=== PATIENT | female | born 1945 | race Caucasian/White ===

== ENCOUNTER 2020-10-26 20:50 | Observation (INO) | payer OTHER ==
[~2020-10-26] VITALS: Ht 170.2 cm; Wt 87.6 kg
[2020-10-26 20:58] VITALS: BP 108/62
[2020-10-26 21:20] LABS: ABSOLUTE EOSINOPHILS 0.5 thou/uL (0.0-0.7); ABSOLUTE LYMPHOCYTES 2.6 thou/uL (0.8-5.3); ABSOLUTE MONOCYTES 1.4 thou/uL (0.0-1.2); ABSOLUTE NEUTROPHILS 6.4 thou/uL (1.6-8.1); BASOPHILS 0.4 %; EOSINOPHILS 4.7 %; HEMATOCRIT 32.2 % (37.0-47.0); LYMPHOCYTES 23.8 %; MCH 31.1 pg (26.0-34.0); MCHC 34.1 g/dL (28.0-37.0); MCV 91.1 fL (80.0-100.0); MONOCYTES 12.7 %; MPV 8.6 fl. (7.2-11.1); NUCLEATED RBCS 0 /100WBC; PLATELET COUNT* 244 thou/uL (150-400); POLYS 58.4 %; RBC 3.54 mil/uL (4.20-5.00); RDW-CV 15.2 % (10.5-14.5); WBC 10.9 thou/uL (4.0-11.0)
[2020-10-26 21:31] LABS: CALCIUM 8.6 mg/dL (8.5-10.1); CREATININE 1.7 mg/dL (0.6-1.3); POTASSIUM 4.6 mmol/L (3.5-5.1)
[2020-10-26 21:42] LABS: ALBUMIN 2.6 g/dL (3.4-5.0); MAGNESIUM 1.7 mg/dL (1.8-2.4); TOTAL BILIRUBIN 0.4 mg/dL (<0.1-1.0); TOTAL PROTEIN 7.3 g/dL (6.4-8.2)
[2020-10-26 21:54] LABS: URINE BILIRUBIN NEGATIVE (Negative); URINE BLOOD NEGATIVE (Negative); URINE CLARITY CLEAR; URINE COLOR YELLOW; URINE GLUCOSE-RANDOM NEGATIVE (Negative); URINE KETONES NEGATIVE (Negative); URINE LEUKOCYTES-REFLEX NEGATIVE (Negative); URINE NITRITE-REFLEX NEGATIVE (Negative); URINE PROTEIN TRACE (Negative); URINE SPECIFIC GRAVITY 1.015 (1.005-1.030)
[2020-10-26] MEDS ORDERED: OXYBUTYNIN 5 MG5 M2 PO (23:15)
[2020-10-26] MEDS ORDERED: LIPITOR 20 MG T20 M1 PO (23:16)
[2020-10-26] MEDS ORDERED: CEPHALEXIN500 MG PO (23:17)
[2020-10-27 02:54] VITALS: BP 117/59
[2020-10-27 07:50] VITALS: BP 102/56
--- NOTE | 2020-10-27 11:40 | EKG ---
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: SARAH COSTELLO : 1945 Requested By: Angela Field Order Number: [id number] MD: Darron Abdul Measurements Intervals [place] Rate: 85 P: 23 MN: 125 QRS: 29 QRSD: 97 T: 36 QT: 347 QTc: 413 Interpretive Statements Sinus rhythm Possible left atrial enlargement Abnormal R-wave progression, early transition No previous ECG available for comparison Electronically Signed On 10-27-2020 11:40:20 CDT by Darron Abdul [email or web address] <ELECTRONICALLY SIGNED> By: Darron Abdul MD, FACC 10/27/20 1140 00 00 Darron Abdul MD, [facility] /EPI
[2020-10-27 12:00] VITALS: BP 91/55
[2020-10-27] MEDS ORDERED: PREDNISONE 10 M10 MG PO (12:13)
[2020-10-27] MEDS ORDERED: PROTONIX40 M4 PO (12:13)
[2020-10-27] MEDS ORDERED: DOXYCYCLINE 10100 MG PO (12:13)
[2020-10-27 13:32] VITALS: BP 91/55
[2020-10-27 14:53] VITALS: BP 91/55
[2020-10-27 18:31] VITALS: BP 91/55
== END 2020-10-27 16:30 | disposition home or self-care (01) ==
LOC: M.ERS 20:50 → M.TBA-ER 10-27 02:08 → M.2W 10-27 02:08
PROVIDERS: Emergency Medicine; ADMIT Internal Medicine; ATTEND Internal Medicine
DX: U07.1 COVID-19 (principal); E83.42 Hypomagnesemia; R53.1 Weakness; R79.89 Other specified abnormal findings of blood chemistry; J44.9 Chronic obstructive pulmonary disease, unspecified; F17.210 Nicotine dependence, cigarettes, uncomplicated; Z79.899 Other long term (current) drug therapy; Z90.710 Acquired absence of both cervix and uterus; Z98.890 Other specified postprocedural states